=== PATIENT | female | born 1990 | race Caucasian/White ===

== ENCOUNTER 2022-05-08 17:33 | Outpatient (CLI) | payer OTHER, SELFPAY ==
[2022-05-08 23:51] LABS: Chlamydia DNA Amplified* NOT DETECTED (No Detected); GC DNA Amplified* NOT DETECTED (No Detected)
[2022-05-09 00:49] LABS: HCG Qualitative Serum* Negative (Negative)
== END 2022-05-08 17:34 | disposition home or self-care (01) ==
PROVIDERS: PCP Family Medicine; Visit Provider Physician Assistant Medical
DX: N92.0 Excessive and frequent menstruation with regular cycle (principal); N94.6 Dysmenorrhea, unspecified
CPT/HCPCS: 84443; 84703; 87491; 87591

== ENCOUNTER 2023-03-08 08:45 | Outpatient (CLI) | payer OTHER, SELFPAY | END 2023-03-08 08:46 | disposition home or self-care (01) | PROVIDERS: PCP Family Medicine; Visit Provider Physician Assistant Medical | DX: Z00.00 Encounter for general adult medical examination without abnormal findings (principal); R10.9 Unspecified abdominal pain; Z13.6 Encounter for screening for cardiovascular disorders; Z13.0 Encounter for screening for diseases of the blood and blood-forming organs and certain disorders involving the immune mechanism; Z13.29 Encounter for screening for other suspected endocrine disorder; Z13.1 Encounter for screening for diabetes mellitus | CPT/HCPCS: 80053; 80061; 82728; 82784; 84443; 85651; 86039; 86140; 86364; 86431; 86812 ==